=== PATIENT | female | born 1980 | race Caucasian/White ===

== ENCOUNTER 2016-11-05 20:59 | Emergency (ER) | payer SELFPAY ==
[~2016-11-05] VITALS: Ht 167.6 cm; Wt 83.0 kg
[~2016-11-05 20:59] MED LIST: PRENATAL VITAMI1 T10 PO
[2016-11-05 21:15] VITALS: BP 140/77
--- NOTE | 2016-11-05 21:44 | NUR ---
Patient to OF2
--- NOTE | 2016-11-05 21:52 | NUR ---
Dr. Enrike adamsuting patient.
--- NOTE | 2016-11-05 22:34 | NUR ---
Lab at drawing labs in overflow.
--- NOTE | 2016-11-05 23:10 | NUR ---
Pt taken to US via w/c.
--- NOTE | 2016-11-05 23:25 | NUR ---
Patient back from US.
[2016-11-05 23:55] VITALS: BP 139/79
--- NOTE | 2016-11-05 23:55 | NUR ---
Patient discharged with v/s stable. Written and verbal after care instructions given and explained. Patient alert, oriented and verbalized understanding of instructions. Ambulatory with steady gait. All questions addressed prior to discharge. ID band removed. Patient advised to follow up with PMD. Rx of ACETHAMINOPHEN, MACROBID, ,[facility] PRENATALMULTI given. Patient educated on indication of medication including possible reaction and side effects. Opportunity to ask questions provided and answered.
== END 2016-11-05 23:55 | disposition home or self-care (01) ==
LOC: MED 20:59
DX: O20.0 Threatened abortion (principal); O23.41 Unspecified infection of urinary tract in pregnancy, first trimester

== ENCOUNTER 2017-04-16 09:10 | Observation (INO) | payer MEDICAID ==
[~2017-04-16] VITALS: Ht 167.6 cm; Wt 84.8 kg
[~2017-04-16 09:10] MED LIST changes: +PREN-385 PO; -PRENATAL VITAMI1 T10 PO
[2017-04-16] MEDS ORDERED: MORPHINE SULFATE 5 MG/ML VIAL IVP PRN (10:30)
[2017-04-16] MEDS ORDERED: LACTATED RINGERS 1,000 ML IV SCH (10:30)
[2017-04-16] MEDS ORDERED: MORPHINE SULFATE 10 MG/ML SYR ONE (10:42)
[2017-04-16] MEDS ORDERED: MORPHINE SULFATE 10 MG/ML SYR IVP PRN (10:55)
[2017-04-16 10:57] VITALS: BP 117/61
[2017-04-16] MEDS ORDERED: INFLUENZA VIRUS VACCINE QUAD 0.5 ML SYR IMVAC SCH (11:00)
[2017-04-16 14:16] LABS: BASOPHILS # (AUTO) 0.1 K/uL (0.00-0.22); BASOPHILS % (AUTO) 0.6 % (0.0-2.0); EOSINOPHILS # (AUTO) 0.1 K/uL (0-0.4); EOSINOPHILS % (AUTO) 0.8 % (0.0-4.0); HEMATOCRIT 34.5 % (36-48); HEMOGLOBIN 11.6 g/dL (12.0-16.0); LYMPHOCYTES # (AUTO) 1.6 K/uL (2.5-16.5); LYMPHOCYTES % (AUTO) 19.1 % (20.5-51.1); MEAN CORPUSCULAR HEMOGLOBIN 32 pg (27-31); MEAN CORPUSCULAR HGB CONC 34 g/dL (33-37); MEAN CORPUSCULAR VOLUME 96 fL (80-94); MONOCYTES # (AUTO) 0.5 K/uL (0.8-1.0); MONOCYTES % (AUTO) 5.6 % (1.7-9.3); NEUTROPHILS % (AUTO) 73.9 % (42.2-75.2); PLATELET COUNT (AUTO) 271 K/uL (140-450); RED BLOOD CELL COUNT(AUTO) 3.61 MIL/uL (4.20-5.40); RED CELL DISTRIBUTION WIDTH 13.3 % (11.6-13.7); WHITE BLOOD COUNT (AUTO) 8.3 K/uL (4.8-10.8)
[2017-04-16] MEDS ORDERED: FAMOTIDINE 20 MG TAB PO SCH (21:00)
[2017-04-17 06:19] LABS: BASOPHILS # (AUTO) 0.1 K/uL (0.00-0.22); BASOPHILS % (AUTO) 0.6 % (0.0-2.0); EOSINOPHILS # (AUTO) 0.1 K/uL (0-0.4); EOSINOPHILS % (AUTO) 0.9 % (0.0-4.0); HEMATOCRIT 33.1 % (36-48); HEMOGLOBIN 11.1 g/dL (12.0-16.0); LYMPHOCYTES % (AUTO) 22.2 % (20.5-51.1); MEAN CORPUSCULAR HEMOGLOBIN 32 pg (27-31); MEAN CORPUSCULAR HGB CONC 34 g/dL (33-37); MEAN CORPUSCULAR VOLUME 96 fL (80-94); MONOCYTES # (AUTO) 0.6 K/uL (0.8-1.0); MONOCYTES % (AUTO) 6.6 % (1.7-9.3); NEUTROPHILS # (AUTO) 6.3 K/uL (1.8-7.7); NEUTROPHILS % (AUTO) 69.7 % (42.2-75.2); PLATELET COUNT (AUTO) 256 K/uL (140-450); RED BLOOD CELL COUNT(AUTO) 3.44 MIL/uL (4.20-5.40); RED CELL DISTRIBUTION WIDTH 13.5 % (11.6-13.7); WHITE BLOOD COUNT (AUTO) 9.1 K/uL (4.8-10.8)
[2017-04-17 06:52] LABS: PROTHROMBIN TIME 10.5 secs (10.8-13.4)
--- NOTE | 2017-04-17 07:55 | NUR ---
PATIENT HAS BEEN SCREENED AND CATEGORIZED MODERATE NUTRITION RISK. PATIENT WILL BE SEEN WITHIN 3-5 DAYS OF ADMISSION. 04/19/17-04/21/[address]
== END 2017-04-17 13:50 | disposition home or self-care (01) ==
LOC: MLD 09:10
PROVIDERS: ADMIT Obstetrics & Gynecology; ATTEND Obstetrics & Gynecology
DX: O26.893 Other specified pregnancy related conditions, third trimester (principal); R10.10 Upper abdominal pain, unspecified; M54.9 Dorsalgia, unspecified; Z3A.28 28 weeks gestation of pregnancy
CPT/HCPCS: 36415; 76805; 82150; 85025; 85384; 85610; 85730; 96360; 96361; G0378; J2270; J7120; Q0092

== ENCOUNTER 2018-11-26 09:45 | Inpatient (IN) | payer MEDICAID ==
[~2018-11-26] VITALS: Ht 167.6 cm; Wt 79.4 kg
[2018-11-26 09:50] VITALS: BP 119/61
--- NOTE | 2018-11-26 09:50 | NUR ---
BIB SELF. AAO X4. C/O OF EPIGASTRIC PAIN RADIATING TO RUQ X2 DAYS. PT STATES N/V. DENIES FEVER, DIARRHEA. VOMITED X1 TODAY. LAST FOOD INTAKE YESTERDAY AFTERNOON. PER PT OTC MEDICATION TAKEN, IBUPROFEN, WITH NO RELIEF YESTERDAY. ABDOMEN NON TENDER TO TOUCH. HOB UP. BED SIDE RAILS UP X1. ON LOW BED POSITION, LOCKED. ER MADE AWARE OF PT STATUS.
--- NOTE | 2018-11-26 09:50 | NUR ---
amb w/o asst to er bed 7
--- NOTE | 2018-11-26 10:05 | NUR ---
IV INITIATED TO RAC 22G, INTACT AND PATENT.
[2018-11-26] MEDS ORDERED: NACL 0.9% 1,000 ML IV SCH (10:13)
[2018-11-26] MEDS ORDERED: ONDANSETRON 4 MG/2 ML VIAL IVP ONE (10:15)
[2018-11-26] MEDS ORDERED: MORPHINE SULFATE 4 MG/ML SYR IVP ONE ×2 (10:15→12:10)
--- NOTE | 2018-11-26 10:15 | NUR ---
DR TELLO AT BEDSIDE FOR PT EVALUATION
--- NOTE | 2018-11-26 10:37 | NUR ---
IV MEDICATION AND IV FLUIDS GIVEN ORDERED. PATIENT TOLERATED WELL.
[2018-11-26 10:38] LABS: HEMATOCRIT 39.3 % (36-48); HEMOGLOBIN 13.5 g/dL (12.0-16.0); LYMPHOCYTES # (AUTO) 1.1 K/uL (2.5-16.5); LYMPHOCYTES % (AUTO) 6.4 % (20.5-51.1); MEAN CORPUSCULAR HEMOGLOBIN 30 pg (27-31); MEAN CORPUSCULAR HGB CONC 34 g/dL (33-37); MEAN CORPUSCULAR VOLUME 87.4 fL (80-94); MONOCYTES # (AUTO) 0.9 K/uL (0.8-1.0); NEUTROPHILS # (AUTO) 15.4 K/uL (1.8-7.7); NEUTROPHILS % (AUTO) 88.6 % (42.2-75.2); PLATELET COUNT (AUTO) 345 K/uL (140-450); WHITE BLOOD COUNT (AUTO) 17.4 K/uL (4.8-10.8)
[2018-11-26 10:40] LABS: APPEARANCE,URINE HAZY (CLEAR); BILIRUBIN,URINE NEGATIVE (NEGATIVE); BLOOD, URINE 2+ (NEGATIVE); COLOR,URINE YELLOW (YELLOW); LEUKOCYTE ESTERASE ,URINE NEGATIVE (NEGATIVE); NITRITE, URINE NEGATIVE (NEGATIVE); PH,URINE 6.5 (5.0-9.0); UGLUCOSE NEGATIVE (NEGATIVE)
[2018-11-26 10:47] LABS: ANION GAP 13.8 (8-16); CARBON DIOXIDE 26.9 mmol/L (21-32); CREATININE 0.9 mg/dL (0.6-1.3); POTASSIUM 3.7 mmol/L (3.5-5.1)
--- NOTE | 2018-11-26 10:55 | NUR ---
PT AAO X4, FULL CLEAR SPEECH, ACTING APPROPRIATELY. NO SIGNS AND SYMPTOMS OF DISTRESS NOTED. PT'S ABDOMINAL PAIN 2/10 AT THIS TIME. WILL CONTINUE TO MONITOR.
--- NOTE | 2018-11-26 10:56 | NUR ---
CYBER INSTRUCTOR AT BEDSIDE
[2018-11-26 10:58] LABS: ALBUMIN 4.2 g/dL (3.4-5.0); TOTAL BILIRUBIN 1.5 mg/dL (0.0-1.0)
[2018-11-26 11:08] LABS: RBC,URINE NONE SEEN /HPF (0-5); WBC,URINE 0-5 /HPF (0-5)
[2018-11-26] MEDS ORDERED: PIPERACILLIN/TAZOBACTAM 3.375 GM in DEXTROSE 5% 50 ML IV ONE (12:10)
--- NOTE | 2018-11-26 12:11 | NUR ---
DR TELLO AT BEDSIDE FOR PT RE EVALUATION
[2018-11-26] MEDS ORDERED: ONDANSETRON 4 MG/2 ML VIAL IM/IVP PRN (12:15)
[2018-11-26] MEDS ORDERED: DOCUSATE SODIUM 100 MG GELCAP PO PRN (12:15)
[2018-11-26] MEDS ORDERED: HYDROcodone/APAP 7.5/325 MG 1 TAB PO PRN (12:15)
[2018-11-26] MEDS ORDERED: PIPERACILLIN/TAZOBACTAM 3.375 GM VIAL IV ONE (12:28)
[2018-11-26] MEDS: ACETAMINOPHEN 325 MG TAB PO PRN ×2 (12:32→18:57)
[2018-11-26] MEDS ORDERED: IBUP-2213 PO (12:39)
[2018-11-26] MEDS ORDERED: DEXT 5% / NACL 0.45% 1,000 ML IV SCH (12:45)
[2018-11-26 13:00] VITALS: BP 117/55
--- NOTE | 2018-11-26 13:00 | NUR ---
RECEIVED PATIENT FROM ED NURSE VIA WHEELCHAIR. PATIENT AWAKE, ALERT, ORIENTED X 4, AMBULATED TO BED, VS BP 117/55, T 102 (ORAL), P 115, RR 17, O2 96%, PATIENT STATED MILD ABDOMINAL PAIN. PERIPHERAL IV PATENT AND INTACT ON RIGHT AC WITH 22 GA SALINE LOCK. NO OTHER UNTOWARD SYMPTOMS NOTED. WILL CONTINUE TO MONITOR PT.
--- NOTE | 2018-11-26 13:00 | NUR ---
Patient will be admitted to care of Dr Schrader. Admited to Med Surg. Will go to room 126 A. Belongings list completed. Report to GREG Lopez.
--- NOTE | 2018-11-26 13:20 | NUR ---
MRSA SWAB DONE. HISTORY AND PHYSICAL ASSESSMENT DONE USING [employer] SPECULATOR SERVICES NAME: OSITO MERCER# [id number].
[2018-11-26] MEDS ORDERED: KETOROLAC 30 MG/ML VIAL IM PRN (13:30)
[2018-11-26 14:06] LABS: BARBITURATE, URINE NEG. ng/ml (NEG <=200); BENZODIAZEPINE, URINE NEG. ng/mL (NEG <=200); CANNABINOID, URINE NEG. ng/mL (NEG <=50); COCAINE, URINE NEG. ng/mL (NEG <=300); OPIATE, URINE NEG. ng/mL (NEG <=2000); PHENCYCLIDINE SCREEN,URINE NEG. ng/mL (NEG <=25)
[2018-11-26 14:37] LABS: MAGNESIUM 2.2 mg/dL (1.8-2.4); PHOSPHORUS 2.2 mg/dL (2.5-4.9); THYROID STIMULATING HORMONE 0.31 uIU/mL (0.34-3.74)
--- NOTE | 2018-11-26 15:40 | NUR ---
PT'S IVF OF D5NS AT 70ML/HR WAS STARTED TO PT NOW.
--- NOTE | 2018-11-26 17:30 | NUR ---
PT IS OFF THE UNIT NOW FOR A HIDA SCAN.
--- NOTE | 2018-11-26 18:50 | NUR ---
[facility] VITAL SIGNS TAKEN AND BP IS 122/74, PULSE IS 87, O2 SATURATION IS 96%, TEMPERATURE IS 100.5. PT HAS A FEVER. WILL MEDICATE PT.
[2018-11-26] MEDS: PIPER/TAZO 3.375GM/D5W PREMIX 50 ML IV SCH ×2 (18:53→23:49)
--- NOTE | 2018-11-26 18:59 | NUR ---
PT IS AWAKE AND TYLENOL WAS GIVEN. WILL ENDORSE TO CANCER PROGRAM COORDINATOR NURSE ON DUTY.
--- NOTE | 2018-11-26 19:25 | NUR ---
REPORT GIVEN/ENDORSED TO SALT LIFTER NURSE FOR CONTINUITY OF CARE. PATIENT AWAKE, ALERT, LYING IN BED RESTING. ADVISED SALT LIFTER NURSE TO REASSESS TEMPERATURE. CALL LIGHT WITHIN REACH, SIDE RAILS ARE UP, AND BED IN LOW POSITION.
--- NOTE | 2018-11-26 19:26 | NUR ---
RECEIVED PT IN STABLE CONDITION FROM AM NURSE. AWAKE,ALERT AND ORIENTED X4. GREENLANDIC SPEAKING. MED CHLOE. AMBULATORY. WITH NO C/O ANY ABDOMINAL PAIN AT THIS TIME. HAS IVF INFUSING WELL ON THE RT AC G#22. CLEAR AND PATENT. PLAN OF CARE DISCUSSED AND VERBALIZED UNDERSTANDING. FAMILY AT BEDSIDE. BED ON LOW POSITION. CALL LIGHT WITHIN EASY REACH. WILL CONTINUE TO MONITOR.
[2018-11-26 20:00] VITALS: BP 113/60
--- NOTE | 2018-11-26 20:00 | NUR ---
PT TEMP STILL ELEVATED 100.3. COOLING MEASURES GIVEN. WILL CONTINUE TO MONITOR.
[2018-11-26] MEDS: SODIUM PHOS / POTASSIUM PHOS 1 PKT PDR PO SCH (21:13)
--- NOTE | 2018-11-26 21:20 | NUR ---
PT HIDA SCAN RESULT NO BILIARY OBSTRUCTION. PT'S DIET CHANGED TO REGULAR. PROVIDED WITH SOME JELLO AND JUICE.
--- NOTE | 2018-11-26 22:30 | NUR ---
PT ASLEEP. NO S/S OF ANY DISCOMFORT NOTED. WILL CONTINUE TO MONITOR.
[2018-11-26 23:50] VITALS: BP 103/50
--- NOTE | 2018-11-26 23:50 | NUR ---
LATEST TEMP AT THIS TIME 98.4
--- NOTE | 2018-11-27 00:30 | NUR ---
PT SLEEPING. NO S/S OF ANY DISCOMFORT NOR PAIN NOTED.
--- NOTE | 2018-11-27 02:00 | NUR ---
PT C/O PAIN ON THE NECK. DR. STANTON,RESIDENT ON DUTY, MADE AWARE . CAME TO CHECK ON PT. WITH ORDERS.
[2018-11-27] MEDS ORDERED: BENZOCAINE 20% 57 GM CAN MC PRN (02:05)
[2018-11-27] MEDS ORDERED: BENZOCAINE/MENTHOL 1 LOZ MM PRN (02:10)
--- NOTE | 2018-11-27 02:20 | NUR ---
PT HAD A WARM TEA FOR SORE THROAT PER ORDER.
--- NOTE | 2018-11-27 02:45 | NUR ---
SWAB FOR STREP THROAT A RAPID COLLECTED. WILL SEND TO LAB.
--- NOTE | 2018-11-27 04:07 | NUR ---
ANOTHER STREP THROAT SPECIMEN FOR CULTURE COLLECTED. SEND TO LAB.
[2018-11-27] MEDS: PIPER/TAZO 3.375GM/D5W PREMIX 50 ML IV SCH ×4 (05:24→23:38)
--- NOTE | 2018-11-27 06:00 | NUR ---
MADE ROUNDS. PT ASLEEP. NO S/S OF ANY DISCOMFORT NOR PAIN NOTED.
[2018-11-27 06:52] LABS: BASOPHILS % (AUTO) 0.1 % (0.0-2.0); EOSINOPHILS % (AUTO) 0.2 % (0.0-4.0); HEMATOCRIT 33.9 % (36-48); HEMOGLOBIN 11.4 g/dL (12.0-16.0); LYMPHOCYTES # (AUTO) 1.7 K/uL (2.5-16.5); LYMPHOCYTES % (AUTO) 12.5 % (20.5-51.1); MEAN CORPUSCULAR HEMOGLOBIN 29 pg (27-31); MEAN CORPUSCULAR HGB CONC 34 g/dL (33-37); MEAN CORPUSCULAR VOLUME 87.7 fL (80-94); MONOCYTES # (AUTO) 1.2 K/uL (0.8-1.0); MONOCYTES % (AUTO) 8.8 % (1.7-9.3); NEUTROPHILS # (AUTO) 10.9 K/uL (1.8-7.7); NEUTROPHILS % (AUTO) 78.4 % (42.2-75.2); PLATELET COUNT (AUTO) 269 K/uL (140-450); RED BLOOD CELL COUNT(AUTO) 3.87 MIL/uL (4.20-5.40); RED CELL DISTRIBUTION WIDTH 14.2 % (11.6-13.7); WHITE BLOOD COUNT (AUTO) 13.9 K/uL (4.8-10.8)
[2018-11-27 06:55] LABS: ANION GAP 10.8 (8-16); CARBON DIOXIDE 27.7 mmol/L (21-32); CREATININE 0.7 mg/dL (0.6-1.3); POTASSIUM 3.5 mmol/L (3.5-5.1)
--- NOTE | 2018-11-27 07:15 | NUR ---
ENDORSED PT IN STABLE CONDITION TO AM NURSE FOR CONTINUITY OF CARE.
--- NOTE | 2018-11-27 07:28 | NUR ---
RECEIVED REPORT FROM PAYLOADER OPERATOR RN. PT IN STABLE CONDITION AT THIS TIME. AAOX4. HEBREW SPEAKING. AMBULATORY. WITH NO C/O ANY ABDOMINAL PAIN AT THIS TIME. HAS IVF INFUSING WELL ON THE RT AC G#22. CLEAR AND PATENT. PLAN OF CARE DISCUSSED AND VERBALIZED UNDERSTANDING. BED ON LOW POSITION. CALL LIGHT WITHIN EASY REACH. WILL MONITOR PT CLOSELY.
[2018-11-27 08:00] VITALS: BP 106/55
--- NOTE | 2018-11-27 08:15 | NUR ---
PATIENT HAS BEEN SCREENED AND CATEGORIZED LOW NUTRITION RISK. PATIENT WILL BE SEEN WITHIN 7 DAYS OF ADMISSION. 12/03/[address]
[2018-11-27] MEDS ORDERED: PANTOPRAZOLE 40 MG TABEC PO SCH (09:00)
--- NOTE | 2018-11-27 09:45 | NUR ---
ENDORSED PT TO GREG CALDERON FOR CONTINUITY OF CARE. PT IN STABLE CONDITION AT THIS TIME.
[2018-11-27] MEDS: LACTOBACILLUS RHAMNOSUS GG 1 EACH CAP PO SCH (09:50)
[2018-11-27] MEDS: SODIUM PHOS / POTASSIUM PHOS 1 PKT PDR PO SCH ×2 (09:50→20:55)
--- NOTE | 2018-11-27 09:55 | NUR ---
RECEIVED REPORT FROM DAY SHIFT NURSE JEROMY FOR CONTINUITY OF CARE. PT IN STABLE CONDITION. RESPIRATIONS EVEN AND UNLABORED, ROOM AIR. IV INTACT AND PATENT. PT ABLE TO AMBULATE TO RESTROOM, STEADY GAIT. SAFETY MEASURES IN PLACE. CALL LIGHT AT BEDSIDE. BED IN LOW POSITION. WILL CONTINUE TO MONITOR.
--- NOTE | 2018-11-27 12:08 | NUR ---
PT LYING IN BED IV ANTIBIOTICS GIVEN PT TOLERATED WELL. FAMILY AT BEDSIDE. CALL LIGHT AT BEDSIDE. BED IN LOW POSITION. WILL CONTINUE TO MONITOR.
[2018-11-27 14:45] LABS: MAGNESIUM 2.3 mg/dL (1.8-2.4); PHOSPHORUS 2.3 mg/dL (2.5-4.9)
[2018-11-27 16:00] VITALS: BP 109/63
[2018-11-27] MEDS: ACETAMINOPHEN 325 MG TAB PO PRN (16:41)
[2018-11-27 18:31] LABS: T4 (THYROXINE) 6.9 ug/dL (4.5 - 12.0)
--- NOTE | 2018-11-27 19:35 | NUR ---
GAVE REPORT TO CONVEYOR BELT OPERATOR NURSE FOR CONTINUITY OF CARE. PT IN STABLE CONDITION.
--- NOTE | 2018-11-27 19:36 | NUR ---
RECEIVED REPORT FROM DAY SHIFT NURSE YUMIKO-RN AT BEDSIDE. PT RESTING IN BED, AOX4- FRISIAN SPEAKING, ON ROOM AIR WITH RIGHT AC #22G-SL. DISCUSSED PLAN OF CARE AND PT VERBALIZED UNDERSTANDING. NO S/S OF RESPIRATORY DISTRESS OR DISCOMFORT NOTED AT THIS TIME. BED IN LOWEST POSITION, BED BREAKS ON, BOTH SIDE RAILS UP. BEDSIDE TABLE AND CALL LIGHT ARE WITHIN REACH. WILL CONTINUE TO MONITOR.
[2018-11-27 20:00] VITALS: BP 117/61
--- NOTE | 2018-11-27 20:00 | NUR ---
VITAL SIGNS TAKEN AND TOLERATED WELL. NO S/S OF RESPIRATORY DISTRESS OR DISCOMFORT NOTED AT THIS TIME. WILL CONTINUE TO MONITOR.
--- NOTE | 2018-11-27 20:55 | NUR ---
SCHEDULED MEDICATION NEUTRA-PHOS GIVEN AND TOLERATED WELL. NO S/S OF RESPIRATORY DISTRESS OR DISCOMFORT NOTED AT THIS TIME. WILL CONTINUE TO MONITOR.
--- NOTE | 2018-11-27 23:38 | NUR ---
SCHEDULED MEDICATION ZOSYN GIVEN AND TOLERATED WELL. NO S/S OF RESPIRATORY DISTRESS OR DISCOMFORT NOTED AT THIS TIME. WILL CONTINUE TO MONITOR.
--- NOTE | 2018-11-28 | NUR ---
VITAL SIGNS TAKEN AND TOLERATED WELL. NO S/S OF RESPIRATORY DISTRESS OR DISCOMFORT NOTED AT THIS TIME. WILL CONTINUE TO MONITOR.
--- NOTE | 2018-11-28 02:00 | NUR ---
PT SLEEPING IN BED. NO S/S OF RESPIRATORY DISTRESS OR DISCOMFORT NOTED AT THIS TIME. WILL CONTINUE TO MONITOR.
[2018-11-28] MEDS: PIPER/TAZO 3.375GM/D5W PREMIX 50 ML IV SCH ×3 (06:00→18:00)
--- NOTE | 2018-11-28 06:00 | NUR ---
[facility] DOWN AT 0600 SEE PHYSICAL CHART FOR ZOSYN ADMIN.
--- NOTE | 2018-11-28 07:22 | NUR ---
RECEIVED REPORT FROM INSIDE UPHOLSTERER NURSE MODESTA FOR CONTINUITY OF CARE. PT IN STABLE CONDITION. RESPIRATIONS EVEN AND UNLABORED. ROOM AIR. IV INTACT AND PATENT. SAFETY MEASURES IN PLACE. CALL LIGHT AT BEDSIDE. BED IN LOW POSITION. WILL CONTINUE TO MONITOR.
[2018-11-28 08:00] VITALS: BP 94/51
[2018-11-28 08:13] LABS: ANION GAP 12.5 (8-16); CARBON DIOXIDE 27.5 mmol/L (21-32); CREATININE 0.6 mg/dL (0.6-1.3)
[2018-11-28 08:21] LABS: BASOPHILS % (AUTO) 0.2 % (0.0-2.0); EOSINOPHILS # (AUTO) 0.2 K/uL (0-0.4); EOSINOPHILS % (AUTO) 1.8 % (0.0-4.0); HEMOGLOBIN 11.2 g/dL (12.0-16.0); LYMPHOCYTES # (AUTO) 1.5 K/uL (2.5-16.5); MAGNESIUM 2.4 mg/dL (1.8-2.4); MEAN CORPUSCULAR HEMOGLOBIN 30 pg (27-31); MEAN CORPUSCULAR HGB CONC 35 g/dL (33-37); MEAN CORPUSCULAR VOLUME 85.5 fL (80-94); MONOCYTES % (AUTO) 11.3 % (1.7-9.3); NEUTROPHILS # (AUTO) 5.8 K/uL (1.8-7.7); NEUTROPHILS % (AUTO) 68.7 % (42.2-75.2); PHOSPHORUS 2.7 mg/dL (2.5-4.9); PLATELET COUNT (AUTO) 257 K/uL (140-450); RED BLOOD CELL COUNT(AUTO) 3.75 MIL/uL (4.20-5.40); RED CELL DISTRIBUTION WIDTH 14.2 % (11.6-13.7); WHITE BLOOD COUNT (AUTO) 8.5 K/uL (4.8-10.8)
[2018-11-28] MEDS ORDERED: POTASSIUM CHLORIDE 10 MEQ TABER PO SCH ×2 (09:04→13:20)
--- NOTE | 2018-11-28 09:15 | NUR ---
DIRECTOR INSURANCE MARCELINA #[id number] USED FOR MEDICATION ADMINISTRATION. PT VERBALIZED NO PAIN AT THIS TIME. ALL QUESTIONS ANSWERED AT THIS TIME. WILL CONTINUE TO MONITOR.
[2018-11-28] MEDS ORDERED: KCL 20 MEQ/WATER INJ PREMIX 100 ML IV SCH (09:30)
[2018-11-28] MEDS: LACTOBACILLUS RHAMNOSUS GG 1 EACH CAP PO SCH (09:56)
[2018-11-28] MEDS: SODIUM PHOS / POTASSIUM PHOS 1 PKT PDR PO SCH (09:57)
[2018-11-28] MEDS ORDERED: AMOX500T3 PO (11:13)
--- NOTE | 2018-11-28 12:07 | NUR ---
PT LYING IN BED SLEEPING AT THIS TIME. RESPIRATIONS EVEN AND UNLABORED. WILL CONTINUE TO MONITOR.
--- NOTE | 2018-11-28 12:41 | NUR ---
PT LYING IN BED WITH FAMILY AT BEDSIDE. PT REFUSING TO EAT MEAL AT THIS TIME. TRAY LEFT AT BEDSIDE. PT IN STABLE CONDITION. WILL CONTINUE TO MONITOR.
[2018-11-28 12:55] LABS: ANION GAP 10.6 (8-16); CARBON DIOXIDE 28.4 mmol/L (21-32); CREATININE 0.7 mg/dL (0.6-1.3)
[2018-11-28] MEDS ORDERED: POTASSIUM CHLORIDE 40 MEQ, LIDOCAINE MPF 1% - 5 mL VIAL 25 MG in NACL 0.9% 250 ML IV SCH (14:00)
--- NOTE | 2018-11-28 14:39 | NUR ---
PT LYING IN BED TALKING ON PHONE AT THIS TIME. PT IN STABLE CONDITION. WILL CONTINUE TO MONITOR. BED IN LOW POSITION. CALL LIGHT AT BEDSIDE.
[2018-11-28 16:00] VITALS: BP 127/75
--- NOTE | 2018-11-28 16:08 | NUR ---
PT WALKING AROUND MST IN STABLE CONDITION. WILL CONTINUE TO MONITOR.
[2018-11-28 19:02] LABS: CARBON DIOXIDE 26.2 mmol/L (21-32); CREATININE 0.6 mg/dL (0.6-1.3); POTASSIUM 4.2 mmol/L (3.5-5.1)
--- NOTE | 2018-11-28 19:25 | NUR ---
GAVE REPORT TO LEAF SIZE PICKER NURSE MODESTA FOR CONTINUITY OF CARE. PT IN STABLE CONDITION.
--- NOTE | 2018-11-28 19:26 | NUR ---
RECEIVED REPORT FROM DAY SHIFT NURSE YUMIKO-RN AT BEDSIDE. PT RESTING IN BED, AOX4- LITHUANIAN SPEAKING, ON ROOM AIR WITH RIGHT AC #22G-SL. DISCUSSED PLAN OF CARE AND PT VERBALIZED UNDERSTANDING. NO S/S OF RESPIRATORY DISTRESS OR DISCOMFORT NOTED AT THIS TIME. BED IN LOWEST POSITION, BED BREAKS ON, BOTH SIDE RAILS UP. BEDSIDE TABLE AND CALL LIGHT ARE WITHIN REACH. WILL CONTINUE TO MONITOR.
[2018-11-28 19:41] VITALS: BP 119/65
[2018-11-28 20:00] VITALS: BP 119/65
--- NOTE | 2018-11-28 20:00 | NUR ---
VITAL SIGNS TAKEN AND TOLERATE WELL. PT HAS DISCHARGE ORDERS. PT SIGNED PAPERWORK. NO S/S OF RESPIRATORY DISTRESS OR DISCOMFORT NOTED AT THIS TIME. WILL CONTINUE TO MONITOR.
--- NOTE | 2018-11-28 20:22 | NUR ---
PT AMBULATED WITH OFF OF UNIT. ID BAND AND IV REMOVED- CATHETER INTACT. PT IN STABLE CONDITION.
== END 2018-11-28 20:22 | disposition home or self-care (01) ==
LOC: MED 09:45 → MMU 12:15
PROVIDERS: ADMIT General Practice; ATTEND General Practice
DX: K80.20 Calculus of gallbladder without cholecystitis without obstruction (principal); R65.10 Systemic inflammatory response syndrome (SIRS) of non-infectious origin without acute organ dysfunction; E83.39 Other disorders of phosphorus metabolism; D72.829 Elevated white blood cell count, unspecified; R31.9 Hematuria, unspecified; E87.6 Hypokalemia; J02.9 Acute pharyngitis, unspecified
CPT/HCPCS: 36415; 71045; 76705; 78445; 80048; 80053; 80305; 81001; 82150; 83036; 83605; 83690; 83735; 83880; 84100; 84436; 84443; 84479; 84484; 85025; 85610; 85730; 87040; 87081; 93005; 96361; 96365; 96375; 96376; 99285; A9510; J2001; J2270; J2405; J2543; J3480; J7030; J7042; Q0092

== ENCOUNTER 2019-05-08 04:03 | Emergency (ER) | payer MEDICAID ==
[~2019-05-08] VITALS: Ht 160 cm; Wt 81.2 kg
[~2019-05-08 04:03] MED LIST changes: +AMOX500T3 PO; +IBUP-2213 PO; -PREN-385 PO
[2019-05-08 04:05] VITALS: BP 137/84
--- NOTE | 2019-05-08 04:05 | NUR ---
TO BED # 07 AMBULATORY
[2019-05-08] MEDS ORDERED: DICYCLOMINE HCL LIQUID 20 MG, ALUMINUM HYD/MAG/SIMETHICONE 30 ML, LIDOCAINE VISCOUS 2% ... PO ONE ×3 (04:15)
--- NOTE | 2019-05-08 04:20 | NUR ---
38 Y/O F PRESENTS TO ED WITH C/O EPIGASTRIC ABDOMINAL PAIN X4 DAYS. ABDOMEN SOFT AND NON-TENDER. BOWEL SOUNDS PRESENT [id number]. +N/V, ONE EPISODE OF VOMITTUS. PT DENIES DYSURIA, FLANK PAIN, FEVER/CHILLS. ERMD AWARE OF PT STATUS. WILL CONTINUE TO MONITOR.
[2019-05-08] MEDS ORDERED: KETOROLAC 30 MG/ML VIAL IVP ONE (04:35)
[2019-05-08] MEDS ORDERED: NACL 0.9% 1,000 ML IV ONE (04:35)
[2019-05-08 05:03] LABS: BASOPHILS % (AUTO) 0.2 % (0.0-2.0); EOSINOPHILS # (AUTO) 0.1 K/uL (0-0.4); HEMATOCRIT 36.6 % (36-48); HEMOGLOBIN 12.3 g/dL (12.0-16.0); LYMPHOCYTES # (AUTO) 1.7 K/uL (2.5-16.5); LYMPHOCYTES % (AUTO) 16.3 % (20.5-51.1); MEAN CORPUSCULAR HEMOGLOBIN 29 pg (27-31); MEAN CORPUSCULAR HGB CONC 34 g/dL (33-37); MEAN CORPUSCULAR VOLUME 87.2 fL (80-94); MONOCYTES # (AUTO) 0.9 K/uL (0.8-1.0); MONOCYTES % (AUTO) 8.6 % (1.7-9.3); NEUTROPHILS # (AUTO) 7.5 K/uL (1.8-7.7); NEUTROPHILS % (AUTO) 73.9 % (42.2-75.2); PLATELET COUNT (AUTO) 244 K/uL (140-450); RED BLOOD CELL COUNT(AUTO) 4.19 MIL/uL (4.20-5.40); RED CELL DISTRIBUTION WIDTH 14.4 % (11.6-13.7); WHITE BLOOD COUNT (AUTO) 10.1 K/uL (4.8-10.8)
--- NOTE | 2019-05-08 05:20 | NUR ---
PT REPORTED A DECREASE IN PAIN, PAIN LEVEL 8/10.
[2019-05-08 05:26] LABS: CARBON DIOXIDE 25.9 mmol/L (21-32); POTASSIUM 3.7 mmol/L (3.5-5.1)
[2019-05-08 05:27] LABS: ANION GAP 15.8 (8-16); CREATININE 0.7 mg/dL (0.6-1.3)
[2019-05-08 05:32] LABS: ALBUMIN 3.8 g/dL (3.4-5.0); TOTAL BILIRUBIN 0.9 mg/dL (0.0-1.0)
[2019-05-08] MEDS ORDERED: MORPHINE SULFATE 4 MG/ML SYR IVP ONE (05:45)
[2019-05-08] MEDS ORDERED: ONDANSETRON 4 MG/2 ML VIAL IVP ONE (05:45)
[2019-05-08 05:55] VITALS: BP 114/69
--- NOTE | 2019-05-08 06:20 | NUR ---
PT REPORTED DECREASED PAIN, 2/10 PAIN.
--- NOTE | 2019-05-08 06:40 | NUR ---
Patient discharged with v/s stable. Written and verbal after care instructions given and explained. Patient alert, oriented and verbalized understanding of instructions. Ambulatory with steady gait. All questions addressed prior to discharge. ID band removed. Patient advised to follow up with PMD. Rx of norco and naprosyn given. Patient educated on indication of medication including possible reaction and side effects. Opportunity to ask questions provided and answered.
== END 2019-05-08 06:40 | disposition home or self-care (01) ==
LOC: MED 04:03
DX: R10.13 Epigastric pain (principal); Z79.1 Long term (current) use of non-steroidal anti-inflammatories (NSAID); Z79.2 Long term (current) use of antibiotics
CPT/HCPCS: 36415; 80053; 81002; 81025; 83690; 84484; 85025; 93005; 96374; 96375; 99284; J1885; J2270; J2405; J7030; 99283

== ENCOUNTER 2019-11-19 21:35 | Inpatient (IN) | payer MEDICAID ==
[~2019-11-19] VITALS: Ht 167.6 cm; Wt 63.5 kg
--- NOTE | 2019-11-19 21:41 | NUR ---
PT AMBULATED TO ER BED 05
[2019-11-19 21:45] VITALS: BP 143/99
[2019-11-19] MEDS ORDERED: NACL 0.9% 500 ML IV ONE (21:52)
[2019-11-19] MEDS ORDERED: ONDANSETRON 4 MG/2 ML VIAL IVP ONE (21:55)
[2019-11-19] MEDS ORDERED: KETOROLAC 30 MG/ML VIAL IVP ONE (21:55)
--- NOTE | 2019-11-19 22:00 | NUR ---
PT ASSESSMENT COMPLETE. PT PLACED IN GOWN. SAFETY MEASURES IN PLACE. BED IN LOWEST POSITION. WILL CONTINUE TO MONITOR.
--- NOTE | 2019-11-19 22:05 | NUR ---
ULTRASOUND AT BEDSIDE.
[2019-11-19 22:22] LABS: BASOPHILS % (AUTO) 0.2 % (0.0-2.0); EOSINOPHILS # (AUTO) 0.1 K/uL (0-0.4); EOSINOPHILS % (AUTO) 1.6 % (0.0-4.0); HEMATOCRIT 37.7 % (36-48); HEMOGLOBIN 12.8 g/dL (12.0-16.0); LYMPHOCYTES # (AUTO) 2.1 K/uL (2.5-16.5); LYMPHOCYTES % (AUTO) 29.6 % (20.5-51.1); MEAN CORPUSCULAR HEMOGLOBIN 31 pg (27-31); MEAN CORPUSCULAR HGB CONC 34 g/dL (33-37); MEAN CORPUSCULAR VOLUME 90.7 fL (80-94); MONOCYTES # (AUTO) 0.5 K/uL (0.8-1.0); MONOCYTES % (AUTO) 7.5 % (1.7-9.3); NEUTROPHILS # (AUTO) 4.3 K/uL (1.8-7.7); NEUTROPHILS % (AUTO) 61.1 % (42.2-75.2); PLATELET COUNT (AUTO) 376 K/uL (140-450); RED BLOOD CELL COUNT(AUTO) 4.16 MIL/uL (4.20-5.40); RED CELL DISTRIBUTION WIDTH 13.6 % (11.6-13.7); WHITE BLOOD COUNT (AUTO) 7.1 K/uL (4.8-10.8)
[2019-11-19 22:38] LABS: ANION GAP 11.8 (8-16); CARBON DIOXIDE 30.5 mmol/L (21-32); CREATININE 0.9 mg/dL (0.6-1.3); POTASSIUM 3.3 mmol/L (3.5-5.1)
[2019-11-19 22:44] LABS: TOTAL BILIRUBIN 1.3 mg/dL (0.0-1.0)
[2019-11-19] MEDS ORDERED: MORPHINE SULFATE 2 MG/ML SYR IVP ONE (22:50)
[2019-11-19] MEDS ORDERED: ACETAMINOPHEN 325 MG TAB PO PRN (22:55)
[2019-11-19] MEDS ORDERED: ONDANSETRON 4 MG/2 ML VIAL IVP PRN (22:55)
--- NOTE | 2019-11-19 23:10 | NUR ---
PT REPORTS DECREASE IN PAIN. WILL CONTINUE TO MONITOR.
[2019-11-19 23:30] VITALS: BP 126/75
--- NOTE | 2019-11-19 23:30 | NUR ---
Patient will be admitted to care of Dr. Schrader. Admited to [facility]. Will go to room 119A. Belongings list completed. Report to GREG TSAI. TRANSFER OF CARE AT THIS TIME.
--- NOTE | 2019-11-19 23:30 | NUR ---
PT ARRIVED FROM EMERGENCY DEPARTMENT VIA WHEELCHAIR. RECEIVED REPORT FROM ER NURSE. PATIENT IS AWAKE, ALERT, ORIENTED. AMBULATORY AND ABLE TO MAKE NEEDS KNOWN. DENIES ANY PAIN OR DISCOMFORT AT THIS TIME. RESPIRATIONS EVEN AND UNLABORED TO ROOM AIR. SKIN IS WARM, DRY, AND INTACT. ABDOMEN IS SOFT AND NON TENDER. IV ACCESS NOTED ON L FA G20. WITH CURRENT IVF INFUSING WELL. PT IS CALM AND COOPERATIVE TO CARE. VITAL SIGNS WERE STABLE. MRSA SWAB COLLECTED. ORIENTED TO ROOM. NO REQUESTS MADE AT THIS TIME. PT. KEPT COMFORTABLE. SAFETY MEASURES IN PLACE. CALL LIGHT WITHIN REACH. WILL CONTINUE TO MONITOR.
[2019-11-19] MEDS ORDERED: POTASSIUM CHLORIDE 10 MEQ TABER PO ONE (23:50)
[2019-11-19 23:58] LABS: MAGNESIUM 2.2 mg/dL (1.8-2.4); PHOSPHORUS 4.1 mg/dL (2.5-4.9); THYROID STIMULATING HORMONE 4.46 uIU/mL (0.34-3.74)
[2019-11-20] MEDS ORDERED: cefTRIAXone 1,000 MG VIAL ONE (00:02)
[2019-11-20] MEDS: DEXT 5% /NACL 0.9% 1,000 ML IV SCH ×3 (00:08→21:07)
--- NOTE | 2019-11-20 00:10 | NUR ---
NEW ORDERED MEDICATIONS GIVEN. PT IS IN STABLE CONDITION. WILL CONTINUE TO MONITOR.
[2019-11-20 00:12] LABS: BARBITURATE, URINE NEGATIVE ng/ml (NEG <=200); BENZODIAZEPINE, URINE NEGATIVE ng/mL (NEG <=200); CANNABINOID, URINE NEGATIVE ng/mL (NEG <=50); COCAINE, URINE NEGATIVE ng/mL (NEG <=300); OPIATE, URINE NEGATIVE ng/mL (NEG <=2000); PHENCYCLIDINE SCREEN,URINE NEGATIVE ng/mL (NEG <=25)
[2019-11-20 00:28] LABS: PROTHROMBIN TIME 10.3 secs (10.8-13.4)
[2019-11-20] MEDS: metroNIDAZOLE 500 MG/NS PREMIX 100 ML IV SCH ×4 (00:50→20:03)
[2019-11-20] MEDS ORDERED: POTASSIUM CHLORIDE 10 MEQ TABER PO ONE (01:00)
--- NOTE | 2019-11-20 02:15 | NUR ---
PT ASLEEP. NO S/SX OF DISTRESS. SAFETY MEASURES IN PLACE. CALL LIGHT WITHIN REACH. WILL CONTINUE TO MONITOR.
--- NOTE | 2019-11-20 05:15 | NUR ---
PT LYING IN BED RESTING. SCHEDULED MEDS GIVEN AT THIS TIME. NO COMPLAIN OF PAIN AT THIS TIME. SAFETY MEASURES IN PLACE. CALL LIGHT WITHIN REACH. WILL CONTINUE TO MONITOR.
[2019-11-20] MEDS: MORPHINE SULFATE 2 MG/ML SYR IVP PRN ×3 (06:23→17:11)
--- NOTE | 2019-11-20 06:26 | NUR ---
PT COMPLAINS OF ABDOMINAL PAIN 02/06. PRN PAIN MEDICATION GIVEN ORDERED. WILL CONTINUE TO MONITOR.
[2019-11-20 07:09] LABS: BASOPHILS % (AUTO) 0.5 % (0.0-2.0); EOSINOPHILS # (AUTO) 0.1 K/uL (0-0.4); EOSINOPHILS % (AUTO) 1.7 % (0.0-4.0); HEMATOCRIT 35.5 % (36-48); HEMOGLOBIN 11.9 g/dL (12.0-16.0); LYMPHOCYTES # (AUTO) 1.4 K/uL (2.5-16.5); LYMPHOCYTES % (AUTO) 28.3 % (20.5-51.1); MEAN CORPUSCULAR HEMOGLOBIN 30 pg (27-31); MEAN CORPUSCULAR HGB CONC 34 g/dL (33-37); MEAN CORPUSCULAR VOLUME 90.3 fL (80-94); MONOCYTES # (AUTO) 0.6 K/uL (0.8-1.0); MONOCYTES % (AUTO) 11.1 % (1.7-9.3); NEUTROPHILS % (AUTO) 58.4 % (42.2-75.2); PLATELET COUNT (AUTO) 339 K/uL (140-450); RED BLOOD CELL COUNT(AUTO) 3.92 MIL/uL (4.20-5.40); RED CELL DISTRIBUTION WIDTH 13.9 % (11.6-13.7); WHITE BLOOD COUNT (AUTO) 5.1 K/uL (4.8-10.8)
--- NOTE | 2019-11-20 07:10 | NUR ---
ENDORSED TO DAY SHIFT NURSE FOR CONTINUITY OF CARE. PATIENT IN STABLE CONDITION.
--- NOTE | 2019-11-20 07:11 | NUR ---
RECEIVED REPORT FROM DRUM STENCILER NURSE QUIN-GREG. PT RESTING IN BED, AOX4, ARABIC/TELUGU SPEAKING, ON ROOM AIR WITH LEFT AC #20 RUNNING D5/NS @ 100ML/HR. NPO EXCEPT MEDS. SKIN INTACT. DISCUSSED PLAN OF CARE AND PT VERBALIZED UNDERSTANDING. NO S/S OF RESPIRATORY DISTRESS OR DISCOMFORT NOTED AT THIS TIME. WILL CONTINUE TO MONITOR.
[2019-11-20 07:16] LABS: ALBUMIN 3.3 g/dL (3.4-5.0); CHOL/HDL RATIO 4.3 (1-4.5); CREATININE 0.8 mg/dL (0.6-1.3); MAGNESIUM 2.2 mg/dL (1.8-2.4); PHOSPHORUS 3.5 mg/dL (2.5-4.9); TOTAL BILIRUBIN 0.6 mg/dL (0.0-1.0)
[2019-11-20 07:46] VITALS: BP 147/74
--- NOTE | 2019-11-20 08:02 | NUR ---
PATIENT HAS BEEN SCREENED AND CATEGORIZED MODERATE NUTRITION RISK. PATIENT WILL BE SEEN WITHIN 3-5 DAYS OF ADMISSION. 11/22/19 11/24/[address]
[2019-11-20] MEDS: DOCUSATE SODIUM 100 MG GELCAP PO SCH ×2 (09:00→20:04)
[2019-11-20] MEDS: FAMOTIDINE 20 MG TAB PO SCH (09:00)
--- NOTE | 2019-11-20 09:06 | NUR ---
SCHEDULED MEDICATION ROCEPHIN GIVEN AND TOLERATED WELL. COLACE AND PEPCID NOT GIVEN FOR HIDA SCAN. SPOKE WITH RADIOLOGY. NO S/S OF RESPIRATORY DISTRESS OR DISCOMFORT NOTED AT THIS TIME. WILL CONTINUE TO MONITOR.
--- NOTE | 2019-11-20 10:00 | NUR ---
DR. ALEKSANDER OWUSU SPOKE WITH PT REGARDING ERCP. PT VERBALIZED UNDERSTANDING. PT SIGNED CONSENT. NO S/S OF RESPIRATORY DISTRESS OR DISCOMFORT NOTED AT THIS TIME. WILL CONTINUE TO MONITOR.
--- NOTE | 2019-11-20 11:02 | NUR ---
PT TAKEN VIA WHEELCHAIR TO RADIOLOGY FOR CT ABD/PELVIS W/O CONTRAST. PT IN STABLE CONDITION. Addendum: 11/20/19 at 1148 by Mary Fletcher RN WRONG PATIENT
[2019-11-20] MEDS ORDERED: PROPOFOL 200 MG/20 ML VIAL IV ONE (11:19)
[2019-11-20] MEDS ORDERED: fentaNYL 0.05 MG/ML VIAL ONE (11:19)
[2019-11-20] MEDS ORDERED: ONDANSETRON 4 MG/2 ML VIAL ONE (11:19)
[2019-11-20] MEDS ORDERED: KETAMINE 500 MG/5 ML VIAL ONE (11:19)
[2019-11-20] MEDS ORDERED: MIDAZOLAM 2 MG/2 ML VIAL ONE (11:19)
[2019-11-20] MEDS ORDERED: DEXAMETHASONE 4 MG/ML VIAL ONE (11:19)
--- NOTE | 2019-11-20 11:48 | NUR ---
PT TAKEN VIA ASA TO OR BY NURSE ZAPIEN. PT STABLE AT THIS TIME.
[2019-11-20] MEDS ORDERED: GLUCAGON 1 MG VIAL ONE (11:53)
[2019-11-20] MEDS ORDERED: LACTATED RINGERS 1,000 ML IV SCH (12:18)
[2019-11-20] MEDS ORDERED: HYDROmorphone 1 MG/ML AMP IVP PRN (12:20)
[2019-11-20] MEDS ORDERED: ONDANSETRON 4 MG/2 ML VIAL IVP PRN (12:20)
[2019-11-20] MEDS ORDERED: LABETALOL 100 MG/20 ML VIAL ONE (12:29)
--- NOTE | 2019-11-20 12:55 | NUR ---
PT RETURNED FROM OR. C/O PAIN 04/08 WILL MEDICATE.
--- NOTE | 2019-11-20 13:16 | NUR ---
SCHEDULED MEDICATION FLAGYL GIVEN AND TOLERATED WELL. WILL CONTINUE TO MONITOR.
--- NOTE | 2019-11-20 13:17 | NUR ---
MEDICATED WITH MORPHINE. PT TOLERATED WELL. SPEAKING WITH DAUGHTER KARTHIKEYAN REGARDING CONDITION. WILL CONTINUE TO MONITOR.
[2019-11-20] MEDS ORDERED: LABETALOL 100 MG/20 ML VIAL IVP ONE (13:35)
[2019-11-20] MEDS ORDERED: LABETALOL 100 MG/20 ML VIAL IVP SCH (13:55)
[2019-11-20] MEDS ORDERED: MORPHINE SULFATE 2 MG/ML SYR IVP SCH (14:13)
[2019-11-20] MEDS: SIMETHICONE 80 MG TAB.CHEW PO PRN ×3 (14:22→19:36)
--- NOTE | 2019-11-20 14:22 | NUR ---
DR. STANTON IN TO SEE PT AND RECEIVED ORDERS FOR AN ADDITIONAL 2MG MORPHINE AND MYLICON FOR GAS. WILL CONTINUE TO MONITOR.
[2019-11-20] MEDS ORDERED: NACL 0.9% 1,000 ML IV SCH (16:35)
[2019-11-20 16:49] VITALS: BP 108/52
--- NOTE | 2019-11-20 17:18 | NUR ---
ZOFRAN GIVEN TO RELIEVE NAUSEA. CALL LIGHT PLACED IN REACH OF PATIENT. WILL CONTINUE TO MONITOR.
[2019-11-20] MEDS: KETOROLAC 30 MG/ML VIAL IVP PRN (18:44)
--- NOTE | 2019-11-20 18:49 | NUR ---
TORADOL GIVEN FOR PAIN 12/[address] STANTON. PT IS AWARE OF PENDING SURGERY [facility] [place] WITH DR. ALMAGUER FOR TOMORROW. WILL CONTINUE TO MONITOR.
--- NOTE | 2019-11-20 19:22 | NUR ---
ENDORSED PT TO TEXTILE SCIENCE TECHNICIAN NURSE TOBY-GREG FOR CONTINUITY OF CARE. PT STABLE AT THIS TIME.
--- NOTE | 2019-11-20 19:23 | NUR ---
RECEIVED PATIENT IN STABLE CONDITION FROM AM SHIFT NURSE FOR CONTINUITY OF CARE. RESPIRATIONS EVEN, UNLABORED. SKIN WARM/DRY. IV SITE TO LEFT AC 20G PATENT/INTACT, INFUSING FLUIDS WELL. NO C/O PAIN. NO S/S ACUTE DISTRESS. CALL LIGHT WITHIN REACH. WILL CONTINUE TO MONITOR.
--- NOTE | 2019-11-20 21:15 | NUR ---
ASSISTED PATIENT TO RESTROOM. CONTINUES TO C/O OF ABDOMINAL DISCOMFORT BUT STATES THAT IT IS TOLERABLE AT THIS TIME. ENCOURAGED PATIENT TO AMBULATE AND REPOSITION IN BED FREQUENTLY TOLERATED TO PROMOTE FLATULENCE PATIENT SITTING IN CHAIR AT BEDSIDE FOR COMFORT. FREQUENT ROUNDS BY STAFF. WILL CONTINUE TO MONITOR.
--- NOTE | 2019-11-20 23:10 | NUR ---
MADE ROUNDS. PATIENT IS ASLEEP. NO S/S ACUTE DISTRESS. CALL LIGHT WITHIN REACH. WILL CONTINUE TO MONITOR.
[2019-11-21] VITALS: BP 101/54
--- NOTE | 2019-11-21 01:09 | NUR ---
PATIENT CONTINUES IN STABLE CONDITION. ASLEEP. NO S/S ACUTE DISTRESS. CALL LIGHT WITHIN REACH. WILL CONTINUE TO MONITOR.
--- NOTE | 2019-11-21 02:51 | NUR ---
PATIENT REQUESTS INFORMATION TO BE GIVEN TO DAUGHTER KARTHIKEYAN, PHONE NUMBER [phone].
[2019-11-21] MEDS: metroNIDAZOLE 500 MG/NS PREMIX 100 ML IV SCH ×2 (04:07→14:51)
--- NOTE | 2019-11-21 04:44 | NUR ---
PATIENT ASLEEP AND IN STABLE CONDITION. NO S/S ACUTE DISTRESS. CALL LIGHT WITHIN REACH. WILL CONTINUE TO MONITOR.
--- NOTE | 2019-11-21 05:21 | NUR ---
PATIENT CONTINUES IN STABLE CONDITION. DUE MEDS GIVEN. NO S/S ACUTE DISTRESS. CALL LIGHT WITHIN REACH. WILL CONTINUE TO MONITOR.
--- NOTE | 2019-11-21 06:26 | NUR ---
PATIENT SLEEPING. NO S/S ACUTE DISTRESS. CONTINUES IN STABLE CONDITION. CALL LIGHT WITHIN REACH. WILL CONTINUE TO MONITOR.
[2019-11-21 06:48] LABS: BASOPHILS % (AUTO) 0.1 % (0.0-2.0); EOSINOPHILS % (AUTO) 0.1 % (0.0-4.0); HEMATOCRIT 35.5 % (36-48); LYMPHOCYTES # (AUTO) 1.2 K/uL (2.5-16.5); LYMPHOCYTES % (AUTO) 14.3 % (20.5-51.1); MEAN CORPUSCULAR HEMOGLOBIN 31 pg (27-31); MEAN CORPUSCULAR HGB CONC 34 g/dL (33-37); MEAN CORPUSCULAR VOLUME 90.9 fL (80-94); MONOCYTES # (AUTO) 0.7 K/uL (0.8-1.0); MONOCYTES % (AUTO) 8.2 % (1.7-9.3); NEUTROPHILS # (AUTO) 6.4 K/uL (1.8-7.7); NEUTROPHILS % (AUTO) 77.3 % (42.2-75.2); PLATELET COUNT (AUTO) 355 K/uL (140-450); RED CELL DISTRIBUTION WIDTH 13.8 % (11.6-13.7); WHITE BLOOD COUNT (AUTO) 8.3 K/uL (4.8-10.8)
[2019-11-21 07:05] LABS: ANION GAP 14.7 (8-16); CREATININE 0.6 mg/dL (0.6-1.3); POTASSIUM 3.7 mmol/L (3.5-5.1)
--- NOTE | 2019-11-21 07:10 | NUR ---
RECEIVED REPORT FROM BARREL PAINTER RNMARK, FOR CONTINUITY OF CARE. PT RESTING IN BED, AOX4, ERITREAN/SAO TOMEAN SPEAKING, ON ROOM AIR WITH NO SIGNS OF DISTRESS. IV ON THE LEFT AC 20G RUNNING D5/NS AT 100ML/HR. NPO EXCEPT MEDS. SKIN INTACT. DISCUSSED PLAN OF CARE AND PT VERBALIZED UNDERSTANDING. SAFETY PRECAUTIONS IN PLACE. CALL LIGHT WITHIN REACH. WILL CONTINUE TO MONITOR.
[2019-11-21 07:23] LABS: MAGNESIUM 2.1 mg/dL (1.8-2.4); PHOSPHORUS 3.8 mg/dL (2.5-4.9)
[2019-11-21 08:00] VITALS: BP 119/63
--- NOTE | 2019-11-21 08:20 | NUR ---
PT. SIGNED CONSENT FOR LAPROSCOPIC CHOLECYSTECTOMY PROCEDURE. PT. IS AWARE OF BENEFITS AND RISK. PT. VERBALIZES UNDERSTANDING OF PROCEDURE AND CONFIRMS THAT MD HAS VISITED AND EXPLAINED PROCEDURE. NO SIGNS OF DISTRESS NOTED. WILL CONTINUE TO MONITOR.
[2019-11-21] MEDS: FAMOTIDINE 20 MG TAB PO SCH (08:25)
[2019-11-21] MEDS: DOCUSATE SODIUM 100 MG GELCAP PO SCH ×2 (08:26→20:33)
[2019-11-21] MEDS: DEXT 5% /NACL 0.9% 1,000 ML IV SCH (08:28)
--- NOTE | 2019-11-21 08:30 | NUR ---
MORNING MEDICATIONS GIVEN. NO SIGNS OF DISTRESS NOTED. WILL CONTINUE TO MONITOR.
--- NOTE | 2019-11-21 11:45 | NUR ---
PT. IS OF THE UNIT FOR PROCEDURE. NO SIGNS OF DISTRESS NOTED. PRE-OP CHECKLIST DONE, CONSENT SIGNED, PT. IS AWARE. WILL CONTINUE TO MONITOR.
[2019-11-21] MEDS ORDERED: BUPIVACAINE-MPF/EPI 0.25% 30 ML VIAL INJ ONE (12:04)
[2019-11-21] MEDS ORDERED: PROPOFOL 200 MG/20 ML VIAL IV ONE (12:15)
[2019-11-21] MEDS ORDERED: DEXAMETHASONE 4 MG/ML VIAL ONE (12:15)
[2019-11-21] MEDS ORDERED: GLYCOPYRROLATE 0.2 MG/ML VIAL ONE (12:15)
[2019-11-21] MEDS ORDERED: SUCCINYLCHOLINE CHLORIDE 200 MG/10 ML VIAL IVP ONE (12:15)
[2019-11-21] MEDS ORDERED: ONDANSETRON 4 MG/2 ML VIAL ONE (12:15)
[2019-11-21] MEDS ORDERED: NEOSTIGMINE 1:1000 10 MG/10 ML VIAL ONE (12:15)
[2019-11-21] MEDS ORDERED: DESFLURANE 240 ML BTL INH ONE (12:15)
[2019-11-21] MEDS ORDERED: ROCURONIUM 50 MG/5 ML VIAL IV ONE (12:15)
[2019-11-21] MEDS ORDERED: LACTATED RINGERS 1,000 ML IV SCH (14:04)
[2019-11-21] MEDS ORDERED: MEPERIDINE 25 MG/ML SYR IVP PRN ×2 (14:05)
[2019-11-21] MEDS ORDERED: ONDANSETRON 4 MG/2 ML VIAL IVP PRN ×2 (14:05)
[2019-11-21] MEDS ORDERED: HYDROmorphone 1 MG/ML AMP IVP PRN (14:05)
[2019-11-21] MEDS: HYDROmorphone 1 MG/ML AMP IVP PRN ×4 (14:05→14:35)
[2019-11-21] MEDS ORDERED: HYDROmorphone PFS 2 MG/ML SYR ONE (14:08)
--- NOTE | 2019-11-21 14:46 | NUR ---
RECEIVED PT. FROM OR NURSERUPALI. BP 154/88, HR 67, O2 STAT 96% ON RA, TEMP 98.8, RR 24. PT. VERBALIZES PAIN 04/08, WITH GUARDING AND MOANING, WILL REPORT TO MD ABOUT PAIN MEDICATION. WILL CONTINUE TO MONITOR.
[2019-11-21] MEDS ORDERED: CYCLOBENZAPRINE 10 MG TAB PO PRN (14:55)
--- NOTE | 2019-11-21 15:00 | NUR ---
FLEXERIL GIVEN FOR ABDOMINAL PAIN 04/08. NO SIGNS OF DISTRESS NOTED. WILL CONTINUE TO MONITOR.
[2019-11-21 16:00] VITALS: BP 142/79
[2019-11-21] MEDS: KETOROLAC 30 MG/ML VIAL IVP PRN (16:39)
--- NOTE | 2019-11-21 16:42 | NUR ---
TORADOL IVP PRN GIVEN FOR ABDOMINAL PAIN 01/06, PT. IS MOANING AND GUARDING ABDOMEN. WILL REASSESS PAIN AFTER AN HOUR. WILL CONTINUE TO MONITOR.
[2019-11-21] MEDS: NACL 0.9% 1,000 ML IV SCH (18:39)
--- NOTE | 2019-11-21 19:05 | NUR ---
ENDORSED TO CANT GANG SAWYER RNRICHY, FOR CONTINUITY OF CARE.
--- NOTE | 2019-11-21 19:06 | NUR ---
RECD. RESTING IN BED, SLEEPING COMFORTABLY, BUT EASILY AROUSABLE. RESPIRATION EVEN AND UNLABORED. IV OF NS AT 80 ML/HR INFUSING, LEFT AC G20. S/P LAP CHOLECYSTECTOMY, INCISION IN THE ABDOMEN (4) COVERED WITH BAND AID DRESSING, ALL DRY AND INTACT. PAIN IN THE ABDOMEN 07/09, WILL MEDICATE ORDERED. ON BILATERAL LEG SEQUENTIALS. PLAN OF CARE FOR THE SHIFT DISCUSSED. VERBALIZED UNDERSTANDING.
--- NOTE | 2019-11-21 19:06 | NUR ---
Patient's Plan of Care was discussed and reviewed with LOU: RICHY. SAFETY MEASURES ARE IN PLACE. WILL CONTINUE TO MONITOR.
[2019-11-21 20:17] VITALS: BP 139/85
[2019-11-21] MEDS: MORPHINE SULFATE 2 MG/ML SYR IVP PRN (20:33)
--- NOTE | 2019-11-21 20:33 | NUR ---
DUE PO MEDICATION GIVEN. REFUSED HEPARIN, EXPLAINED THE IMPORTANCE OF HEPARIN ESPECIALLY TO POST-OP PATIENT. STATED SHE DOES NOT WANT SHOTS BUT WILL THINK ABOUT IT.
--- NOTE | 2019-11-21 21:30 | NUR ---
ASSISTED OUT OF BED TO AMBULATE TO BR TO VOID, ABLE TO VOID MODERATE AMOUNT OF URINE. BACK TO BED AFTER VOIDING.
--- NOTE | 2019-11-21 23:30 | NUR ---
SLEEPING COMFORTABLY IN BED.
[2019-11-22] VITALS: BP 135/73
--- NOTE | 2019-11-22 02:30 | NUR ---
COMFORTABLE IN BED, SLEEPING.
[2019-11-22 03:50] VITALS: BP 129/76
[2019-11-22] MEDS: MORPHINE SULFATE 2 MG/ML SYR IVP PRN ×2 (03:57→09:39)
--- NOTE | 2019-11-22 04:30 | NUR ---
INSTRUCTED HOW TO USE AND THE ADVANTAGE OF USING INCENTIVE SPIROMETER. SEEMS STILL SLEEPY, WILL TRY LATER.
[2019-11-22 06:04] LABS: BASOPHILS % (AUTO) 0.2 % (0.0-2.0); EOSINOPHILS # (AUTO) 0.1 K/uL (0-0.4); EOSINOPHILS % (AUTO) 0.6 % (0.0-4.0); HEMATOCRIT 36.2 % (36-48); LYMPHOCYTES # (AUTO) 2.4 K/uL (2.5-16.5); LYMPHOCYTES % (AUTO) 21.7 % (20.5-51.1); MEAN CORPUSCULAR HEMOGLOBIN 30 pg (27-31); MEAN CORPUSCULAR HGB CONC 33 g/dL (33-37); MEAN CORPUSCULAR VOLUME 91.1 fL (80-94); MONOCYTES # (AUTO) 0.9 K/uL (0.8-1.0); MONOCYTES % (AUTO) 8.1 % (1.7-9.3); NEUTROPHILS # (AUTO) 7.8 K/uL (1.8-7.7); NEUTROPHILS % (AUTO) 69.4 % (42.2-75.2); PLATELET COUNT (AUTO) 363 K/uL (140-450); RED BLOOD CELL COUNT(AUTO) 3.98 MIL/uL (4.20-5.40); WHITE BLOOD COUNT (AUTO) 11.2 K/uL (4.8-10.8)
--- NOTE | 2019-11-22 06:20 | NUR ---
ABLE TO SLEEP WELL. COMPLAINT OF ABDOMINAL PAIN ATTENDED PROMPTLY, MEDICATED ORDERED.
[2019-11-22 06:23] LABS: ANION GAP 11.4 (8-16); CARBON DIOXIDE 28.1 mmol/L (21-32); CREATININE 0.8 mg/dL (0.6-1.3); POTASSIUM 3.5 mmol/L (3.5-5.1)
--- NOTE | 2019-11-22 07:10 | NUR ---
CONDITION REMAIN STABLE. ENDORSED TO GREG BYERS FOR CONTINUITY OF CARE.
--- NOTE | 2019-11-22 07:10 | NUR ---
RECEIVED REPORT FROM GEOMORPHOLOGY TEACHER NURSE CLAYTON. PT RESTING IN BED, AOX4- INDONESIAN/AMHARIC SPEAKING, ON ROOM AIR WITH IV SITE LEFT AC #20 RUNNING NS @80ML/HR. S/P SADIQ HANNAH WITH DR. ALMAGUER ON 11/20 WITH X4 ABD INCISIONS COVERED BY BANDAIDS. DISCUSSED PLAN OF CARE AND PT VERBALIZED UNDERSTANDING. NO S/S OF RESPIRATORY DISTRESS OR DISCOMFORT NOTED AT THIS TIME. WILL CONTINUE TO MONITOR.
[2019-11-22] MEDS ORDERED: HYDR-5122 PO (07:14)
[2019-11-22] MEDS: NACL 0.9% 1,000 ML IV SCH (07:17)
[2019-11-22 08:00] VITALS: BP 118/78
[2019-11-22] MEDS ORDERED: ENOXAPARIN 40 MG/0.4 ML SYR SUBQ SCH (09:00)
[2019-11-22] MEDS: FAMOTIDINE 20 MG TAB PO SCH (09:15)
[2019-11-22] MEDS: DOCUSATE SODIUM 100 MG GELCAP PO SCH (09:15)
--- NOTE | 2019-11-22 09:16 | NUR ---
SCHEDULED MEDICATIONS GIVEN AND TOLERATED WELL. NO S/S OF RESPIRATORY DISTRESS OR DISCOMFORT NOTED AT THIS TIME. WILL CONTINUE TO MONITOR.
--- NOTE | 2019-11-22 09:39 | NUR ---
PT C/O PAIN 02/06 AND MEDICATED WITH MORPHINE. PT TOLERATED WELL. DR. STANTON IN TO SEE PATIENT REGARDING ANTICIPATED DC. DISCUSSED WITH PT THAT HE WOULD LIKE TO SEE PT AMBULATING, TOLERATING FOOD WELL AND PASSING GAS OR BM. DISCUSSED WITH PT THAT HE WILL BE DC MORPHINE AND ORDERING [facility] FOR PAIN MANAGEMENT. CONTINUING PAIN MANAGEMENT WITH [facility] ONCE DC HOME. PT VERBALIZED UNDERSTANDING. WILL CONTINUE TO MONITOR.
--- NOTE | 2019-11-22 11:14 | NUR ---
PT SLEEPING IN BED. NO S/S OF RESPIRATORY DISTRESS OR DISCOMFORT NOTED AT THIS TIME. WILL CONTINUE TO MONITOR.
--- NOTE | 2019-11-22 11:56 | NUR ---
WALKED WITH PT AROUND THE UNIT. PT TOLERATED WELL. EDUCATED PT ON PAIN MEDICATION, SIDE EFFECTS, AND CONSTIPATION PREVENTION/ RELIEF. PT VERBALIZED UNDERSTANDING. NO S/S OF RESPIRATORY DISTRESS OR DISCOMFORT NOTED AT THIS TIME. WILL CONTINUE TO MONITOR.
[2019-11-22 12:09] LABS: ALBUMIN 3.5 g/dL (3.4-5.0); ANION GAP 11.3 (8-16); CARBON DIOXIDE 29.3 mmol/L (21-32); CREATININE 0.8 mg/dL (0.6-1.3); POTASSIUM 3.6 mmol/L (3.5-5.1); TOTAL BILIRUBIN 0.9 mg/dL (0.0-1.0)
[2019-11-22 13:29] VITALS: BP 118/78
--- NOTE | 2019-11-22 14:00 | NUR ---
PT SIGNED DC PAPERWORK. EDUCATION PROVIDED ON MEDICATIONS, RX SENT ELECTRONICALLY TO PREFERRED PHARMACY AND VERIFIED LOCATION WITH PT. ALSO REINFORCED TO MAKE APPOINTMENT WITH CLINIC AND TO APPLY FOR MEDICAL FOR A PCP. PT VERBALIZED UNDERSTANDING.
[2019-11-22] MEDS: SIMETHICONE 80 MG TAB.CHEW PO PRN (14:14)
--- NOTE | 2019-11-22 14:14 | NUR ---
PT C/O MILD PAIN AND GAS. ACETAMINOPHEN AND MYLICON GIVEN AND TOLERATED WELL. WILL CONTINUE TO MONITOR.
--- NOTE | 2019-11-22 14:23 | NUR ---
PT WAS ESCORTED BY ELIZABETH MENDIETA TO FRONT LOBBY WHERE PT [id number] WAS WAITING. IV REMOVED, CATHETER INTACT. ID BANDS REMOVED. PT TOLERATED WELL. PT STABLE AT THIS TIME.
== END 2019-11-22 14:20 | disposition home or self-care (01) | DRG 263 ==
LOC: MED 21:35 → MTU 22:55
PROVIDERS: ADMIT General Practice; ATTEND General Practice
PROC: 0F798ZZ Dilation of Common Bile Duct, Via Natural or Artificial Opening Endoscopic (ICD-10-PCS; 2019-11-20)
PROC: 0FC98ZZ Extirpation of Matter from Common Bile Duct, Via Natural or Artificial Opening Endoscopic (ICD-10-PCS; 2019-11-20)
PROC: 0FT44ZZ Resection of Gallbladder, Percutaneous Endoscopic Approach (ICD-10-PCS; principal; 2019-11-21 12:00)
DX: K80.65 Calculus of gallbladder and bile duct with chronic cholecystitis with obstruction (principal); E44.0 Moderate protein-calorie malnutrition; E87.6 Hypokalemia; Z68.22 Body mass index [BMI] 22.0-22.9, adult; K82.1 Hydrops of gallbladder
CPT/HCPCS: 36415; 71045; 74330; 76705; 80048; 80053; 80305; 82374; 83036; 83690; 83735; 83880; 84100; 84443; 84484; 85025; 85610; 85730; 86886; 86900; 86901; 87040; 87081; 96374; 96375; 99285; C1769; C1773; J0330; J0696; J1100; J1170; J1610; J1644; J1885; J2250; J2270; J2405; J2704; J2710; J3010; J3490; J7030; J7042; J7060; J7120; Q0092; Q9965

== ENCOUNTER 2021-02-07 09:06 | Emergency (ER) | payer MEDICAID, SELFPAY ==
[~2021-02-07] VITALS: Ht 167.6 cm; Wt 79.5 kg
[~2021-02-07 09:06] MED LIST changes: -AMOX500T3 PO; +HYDR-5122 PO; -IBUP-2213 PO
[2021-02-07 09:13] VITALS: BP 122/75
--- NOTE | 2021-02-07 09:20 | NUR ---
Patient ambulated to bed 1 with a steady gait.
--- NOTE | 2021-02-07 09:25 | NUR ---
40 Y/O FEMALE C/O ABD PAIN, N/V, FEVER, HEADACHE, SORE THROAT X2 DAYS. PATIENT A&O X4. DENIES ANYONE SICK AT HOME. PT TOOK TYLENOL LAST NIGHT WITHOUT RELIEF. PATIENT STATES IT IS A STABBING PAIN 04/08, RADIATES TO FLANK; HX OF KIDNEY STONES 2019. PMH:DENIES NKDA RX: DENIES
[2021-02-07] MEDS ORDERED: KETOROLAC 30 MG/ML VIAL IM ONE (10:00)
[2021-02-07] MEDS ORDERED: ACETAMINOPHEN EXTRA STRENGTH 500 MG TAB PO ONE (10:00)
--- NOTE | 2021-02-07 10:31 | NUR ---
Dr. Yang at the bedside evaluating patient.
--- NOTE | 2021-02-07 10:31 | NUR ---
late entry: covid 19 swab and blood work drawn and given to cardiac cath lab manager Rodri.
--- NOTE | 2021-02-07 10:40 | NUR ---
Urine specimen taken to the lab and given to senior label specialist.
[2021-02-07 10:44] LABS: BASOPHILS % (AUTO) 0.2 % (0.0-2.0); HEMATOCRIT 38.5 % (36-48); HEMOGLOBIN 13.1 g/dL (12.0-16.0); LYMPHOCYTES % (AUTO) 6.1 % (20.5-51.1); MEAN CORPUSCULAR HEMOGLOBIN 31 pg (27-31); MEAN CORPUSCULAR HGB CONC 34 g/dL (33-37); MEAN CORPUSCULAR VOLUME 91.1 fL (80-94); MONOCYTES # (AUTO) 0.9 K/uL (0.8-1.0); MONOCYTES % (AUTO) 5.5 % (1.7-9.3); NEUTROPHILS # (AUTO) 15.1 K/uL (1.8-7.7); PLATELET COUNT (AUTO) 373 K/uL (140-450); RED BLOOD CELL COUNT(AUTO) 4.23 MIL/uL (4.20-5.40); RED CELL DISTRIBUTION WIDTH 13.4 % (11.6-13.7); WHITE BLOOD COUNT (AUTO) 17.1 K/uL (4.8-10.8)
[2021-02-07 10:59] LABS: ALBUMIN 3.8 g/dL (3.4-5.0); ANION GAP 13.8 (8-16); CARBON DIOXIDE 24.9 mmol/L (21-32); CREATININE 0.8 mg/dL (0.6-1.3); POTASSIUM 3.7 mmol/L (3.5-5.1); TOTAL BILIRUBIN 0.9 mg/dL (0.0-1.0)
[2021-02-07 11:04] LABS: APPEARANCE,URINE SL CLOUDY (CLEAR); BILIRUBIN,URINE NEGATIVE (NEGATIVE); BLOOD, URINE 1+ (NEGATIVE); COLOR,URINE YELLOW (YELLOW); LEUKOCYTE ESTERASE ,URINE 1+ (NEGATIVE); NITRITE, URINE NEGATIVE (NEGATIVE); UGLUCOSE NEGATIVE (NEGATIVE)
[2021-02-07 11:11] LABS: NEUTROPHILS % (AUTO) 88.2 % (42.2-75.2)
[2021-02-07 11:17] LABS: RBC,URINE 0-5 /HPF (0-5); WBC,URINE 16-25 (MOD) /HPF (0-5)
[2021-02-07 11:18] LABS: TRICHOMONAS,URINE Few /HPF (None Seen)
--- NOTE | 2021-02-07 11:40 | NUR ---
Patient resting comfortably in bed; VSS; call light within reach and bed locked in the lowest position.
[2021-02-07] MEDS ORDERED: metroNIDAZOLE 250 MG TAB PO ONE (12:25)
--- NOTE | 2021-02-07 12:30 | NUR ---
Pharmacy notified and aware that there were not enough flagyl pills to carry out MDs orders.
--- NOTE | 2021-02-07 12:40 | NUR ---
Patient resting comfortably in bed; VSS; call light within reach and bed locked in the lowest position.
[2021-02-07] MEDS ORDERED: cefTRIAXone 1,000 MG VIAL ONE (12:43)
--- NOTE | 2021-02-07 13:04 | NUR ---
Patient resting comfortably in bed; VSS; call light within reach and bed locked in the lowest position.
[2021-02-07] MEDS ORDERED: CIPR500T4 PO (13:09)
[2021-02-07] MEDS ORDERED: DOXY-487 PO (13:09)
[2021-02-07] MEDS ORDERED: metroNIDAZOLE 250 MG TAB ONE (13:33)
[2021-02-07 14:23] VITALS: BP 103/57
--- NOTE | 2021-02-07 14:23 | NUR ---
Patient discharged with v/s stable. Written and verbal after care instructions given and explained. Patient alert, oriented and verbalized understanding of instructions. Ambulatory with steady gait. All questions addressed prior to discharge. ID band removed. Patient advised to follow up with PMD. Rx of CIPROFLOXACIN, DOXYCYCLINE, IBUPROFEN given. Patient educated on indication of medication including possible reaction and side effects. Opportunity to ask questions provided and answered.
== END 2021-02-07 14:23 | disposition home or self-care (01) ==
LOC: MED 09:06
DX: N12 Tubulo-interstitial nephritis, not specified as acute or chronic (principal); A59.9 Trichomoniasis, unspecified
CPT/HCPCS: 80053; 81001; 81025; 85025; 87086; 96365; 96372; 99284; J0696; J1885; U0003